=== PATIENT | male | born 1970 | race Hispanic/Latino ===

== ENCOUNTER 2017-07-22 09:57 | Observation (INO) | payer MEDICAID, SELFPAY ==
[2017-07-22 10:30] LABS: #Eosinphils 0.2 thou/uL (0.0-0.7); #Lymphocytes 1.4 thou/uL (1.20-3.40); #Monocytes 0.2 thou/uL (0.11-0.59); #Neutrophils 1.6 thou/uL (1.40-6.50); %Basophils 1.2 % (0.0-1.0); %Lymphocytes 39.9 % (21.0-51.0); %Monocytes 6.3 % (0.0-10.0); Hematocrit 21.9 % (42.0-52.0); Mean Platelet Volume 7.5 fL (7.4-10.4); Red Blood Cell (RBC) Count 2.28 mill/uL (4.70-6.10); White Blood Cell (WBC) Count 3.4 thou/uL (4.8-10.8)
[2017-07-22 10:44] LABS: ALT (SGPT) 19 U/L (8-55); AST (SGOT) 11 U/L (5-34); Alkaline Phosphatase 70 U/L (40-150); Anion Gap 27 mmol/L (10-20); Bilirubin, Total 0.6 mg/dL (0.2-1.2); Calc. Creatinine Clearance 0 mL/min (70-130); Calcium 6.7 mg/dL (7.8-10.44); Carbon Dioxide 15 mmol/L (22-29); Chloride 100 mmol/L (98-107); Estimated GFR-MDRD 2; Globulin 3.2 g/dL (2.4-3.5); Protein, Total 7.5 g/dL (6.0-8.3)
[2017-07-22 10:55] LABS: BUN (Urea Nitrogen) 141 mg/dL (8.9-20.6)
[2017-07-22 11:01] LABS: Oxyhemoglobin 96.4 % (94.0-97.0); Sodium 137 mmol/L (135-148)
[2017-07-22 11:03] LABS: Mode RA; Modified Allen's Test POSITIVE; Vent NO
--- NOTE | 2017-07-22 13:12 | HP ---
PRIMARY CARE PROVIDER: Leatha Denis M.D. PAYMENT PROCESSOR: Jonah Fay M.D. CHIEF COMPLAINT: Referred to the [facility] by [place] emergency doctor. HISTORY OF PRESENT ILLNESS: The patient states he comes to the ED every 15 days to get dialysis. Garrett oneal is not eligible for dialysis as an outpatient. He complains of malaise, fatigue, some pruritus, a nd some anorexia. He has no swelling in his legs. No shortness of breath, no nausea or vomiting, n o chest pain. PAST MEDICAL HISTORY: Pertinent for end-stage renal disease with periodic hospital hemodialysis, hy pertension, and anemia of chronic disease. PAST SURGICAL HISTORY: Fistula in right wrist. CURRENT MEDICATIONS: Tums 1000 mg 3 times a day, amlodipine 5 mg a day, and ferrous sulfate 325 mg a day. ALLERGIES: VANCOMYCIN. SOCIAL HISTORY: , but . Denies alcohol or tobacco. No surrogate decision maker. FAMILY HISTORY: Negative for kidney disorders. REVIEW OF SYSTEMS: GENERAL: No headaches, dizziness, fainting, fever, or chills. EYES: Needs glasses. No blurred vision, otherwise, double vision, flashing lights. EAR, NOSE, AND THROAT: No ear pain or drainage. No nasal bleeding. No trouble swallowing. CARDIAC: No chest pain, orthopnea or paroxysmal nocturnal dyspnea. RESPIRATIONS: No cough, wheezing, or asthma. GASTROINTESTINAL: No nausea, vomiting, diarrhea, constipation or abdominal pain. MUSCULOSKELETAL: No pain or swelling in his muscles or joints. NEUROLOGICAL: No strokes, seizures or focal weakness. PSYCHIATRIC: No anxiety or depression. SKIN: He states he itches, but has no rash and no bruising. HEME/LYMPH: No tender or swollen lymph nodes in axilla, inguinal or cervical area. PHYSICAL EXAMINATION: GENERAL: He is an alert, oriented, and cooperative. VITAL SIGNS: Blood pressure 135/81, pulse 70, respirations 16, and room air sat 99. HEAD, EYES, EARS, NOSE AND THROAT: Reveal pupils equal, round, and reactive to light. Extraocular movements are intact. Sclerae are white. Tympanic membranes clear. Nose is clear. Throat is dutch r. NECK: Supple, without jugular venous distention, adenopathy or thyromegaly. CHEST: Clear to auscultation and percussion. HEART: Regular rate and rhythm. First and second heart sounds are clear. There are no murmurs, ga llops, or rubs. ABDOMEN: Soft, bowel sounds are normal. There is no hepatosplenomegaly, no mass, no rebound, no br uits. EXTREMITIES: Reveal no cyanosis, clubbing or edema. He has a functioning shunt in his right wrist. PULSES: Carotid, radial, femoral, and dorsalis pedis pulses are intact. SKIN: Warm and dry without bruises or rash. HEME/LYMPH: Reveal no tender or swollen lymph nodes in axilla, inguinal or cervical area. NEUROLOGIC: Cranial nerves II-XII are intact. Deep tendon reflexes are symmetric. Moves all extre mities. IMAGING DATA: Chest x-ray shows no cardiomegaly, CHF or infiltrate, on the last chest x-ray which i s within a month reviewed by me. EKG, no peaked T-wave, regular sinus rhythm. LABORATORY DATA: White count 3.4, hemoglobin 7.7, platelet count 129, CO2 15, potassium 5.0, BUN 14 1, creatinine 25. ADMITTING DIAGNOSES: 1. Metabolic acidosis. 2. End-stage renal disease with intermittent hemodialysis. 3. Hypertension. 4. Anemia of chronic kidney disease. PLAN: Emergent hemodialysis. Dr. Jonah Fay has been consulted.
[2017-07-22] MEDS ORDERED: Ondansetron ODT 4 MG TAB PO PRN (14:27)
[2017-07-22] MEDS ORDERED: Zolpidem Tartrate 5 MG TAB PO PRN (14:27)
[2017-07-22] MEDS ORDERED: Acetaminophen 325 MG TAB PO PRN (14:27)
[2017-07-22 14:38] VITALS: BMI 22.1
[2017-07-22] MEDS: Calcium Carbonate 500 MG ChewTAB PO SCH (18:44)
[2017-07-23 06:14] LABS: Anion Gap 21 mmol/L (10-20); BUN (Urea Nitrogen) 55 mg/dL (8.9-20.6); Calc. Creatinine Clearance 6 mL/min (70-130); Calcium 8.2 mg/dL (7.8-10.44); Carbon Dioxide 26 mmol/L (22-29); Chloride 96 mmol/L (98-107); Estimated GFR-MDRD 4
[2017-07-23] MEDS ORDERED: Ferrous Sulfate 325 MG TAB PO SCH (08:00)
[2017-07-23 08:10] VITALS: TEMP 98.3
[2017-07-23] MEDS: Calcium Carbonate 500 MG ChewTAB PO SCH ×3 (08:53→18:27)
[2017-07-23 11:56] VITALS: BP 130/79
--- NOTE | 2017-07-23 20:17 | DIS ---
DATE OF ADMISSION: 07/22/2017 DATE OF DISCHARGE: 07/23/2017 PRIMARY CARE PROVIDER: Slab Installer, Dr. Jonah Fay. Dr. Leatha Denis is listed as PCP. FINAL DIAGNOSES: End-stage renal failure, metabolic acidosis, hypertension, anemia of chronic kidne y disease. DISCHARGE MEDICATIONS: Same as home medications. Ferrous sulfate 325 a day, calcium carbonate 1000 mg 3 times a day, amlodipine 5 mg a day. ALLERGIES: VANCOMYCIN. PENDING AT THE TIME OF DISCHARGE: Nothing. CODE STATUS: FULL. HOSPITAL COURSE: The patient presented to the ER stating he came to the ER every 15 days for dialys is. He apparently is not eligible for outpatient dialysis. In evaluation of him, he was anemic at 7.7 consistent with chronic kidney disease. His arterial blood gas pH was 7.27. His CO2 on comp me tabolic profile was 15, his BUN was 141, creatinine 25. After one episode of hemodialysis, creatini ne is down to 13.52. BUN 55 and CO2 was up to 26. He is having second episode of hemodialysis toda y and will be discharged when it is over. He has been told to follow up with PCP or senior brand manager in 7 days. CONSULTATIONS: Dr. Fay for hemodialysis. PROCEDURES: Hemodialysis x2 in the past 24 hours.
== END 2017-07-23 18:52 | disposition home or self-care (01) ==
LOC: ERS 09:57 → 2SW 13:13
PROVIDERS: ADMIT Internal Medicine; ATTEND Internal Medicine
DX: I12.0 Hypertensive chronic kidney disease with stage 5 chronic kidney disease or end stage renal disease (principal); N18.6 End stage renal disease; D63.1 Anemia in chronic kidney disease; E87.2 Acidosis; Z79.899 Other long term (current) drug therapy; Z88.1 Allergy status to other antibiotic agents; Z99.2 Dependence on renal dialysis
CPT/HCPCS: 36415; 80048; 80053; 82805; 83880; 85025; 87340; 90935; 93005; G0257; G0378; Q0162

== ENCOUNTER 2017-08-13 10:19 | Observation (INO) | payer MEDICAID, SELFPAY ==
[2017-08-13 10:51] LABS: #Eosinphils 0.3 thou/uL (0.0-0.7); #Lymphocytes 1.2 thou/uL (1.20-3.40); #Monocytes 0.2 thou/uL (0.11-0.59); #Neutrophils 2.1 thou/uL (1.40-6.50); %Basophils 0.8 % (0.0-1.0); %Eosinophils 7.1 % (0.0-10.0); %Monocytes 6.5 % (0.0-10.0); Hematocrit 23.3 % (42.0-52.0); Mean Platelet Volume 7.5 fL (7.4-10.4); Red Blood Cell (RBC) Count 2.41 mill/uL (4.70-6.10); White Blood Cell (WBC) Count 3.8 thou/uL (4.8-10.8)
[2017-08-13 11:16] LABS: ALT (SGPT) 52 U/L (8-55); AST (SGOT) 24 U/L (5-34); Alkaline Phosphatase 92 U/L (40-150); Anion Gap 28 mmol/L (10-20); Bilirubin, Total 0.7 mg/dL (0.2-1.2); Calc. Creatinine Clearance 0 mL/min (70-130); Calcium 7.6 mg/dL (7.8-10.44); Carbon Dioxide 16 mmol/L (22-29); Chloride 97 mmol/L (98-107); Estimated GFR-MDRD 2; Globulin 2.7 g/dL (2.4-3.5); Protein, Total 6.9 g/dL (6.0-8.3)
[2017-08-13 11:28] LABS: BUN (Urea Nitrogen) 156 mg/dL (8.9-20.6)
--- NOTE | 2017-08-13 13:22 | HP ---
PRIMARY CARE PHYSICIAN: [facility]. The patient is following Dr. Denis as needed basis. PRIMARY PREMIUM AUDITOR: Dr. Sumeet Mckenzie. REASON FOR ADMISSION: Uremia, hyperkalemia. HISTORY OF PRESENT ILLNESS: A 47-year-old male, who has history of end -stage renal disease, on hemodialysis, who comes in the emergency room periodically for dialysis. He is not able to get maintenance dialysis because of his immigrant status. He has history of focal segmental glomerulosclerosis that was diagnosed with kidney biopsy several years ago. He is getting dialysis through his AV fistula his last admission in our hospital was on 2016. Today, he came to the emergency room with increasing weakness, increasing shortness of breath. He feels congestion in his chest in the morning time. He smells urine from his body. He does have poor appetite and uremic smell and uremic taste. He also has poor appetite. He denies any edema. He denies any chest pain. He denies any fever or chills. He denies any urinary tract infection symptoms. He denies any melena or hematochezia. Today, this patient had a routine workup which showed leukopenia, anemia, and hyperkalemia. He has significantly elevated BUN and creatinine. At this point , the patient is being admitted to observation floor for dialysis. PAST MEDICAL HISTORY: End-stage renal disease on hemodialysis, focal segmental glomerulosclerosis, hypertension, and anemia of renal disease, secondary hyperparathyroidism of renal origin, history of enterococcal bacteremia secondary to infected dialysis catheter subsequently catheter was removed, history of pancytopenia. PAST SURGICAL HISTORY: Hemodialysis catheter placement; subsequently, it was infected and subsequently hemodialysis catheter was removed, AV fistula, kidney biopsy. PAST PSYCHIATRIC HISTORY: Reviewed and negative. ALLERGIES: VANCOMYCIN. FAMILY HISTORY: No strong family history of premature coronary artery disease, stroke or cancer. No family history of ESRD. SOCIAL HISTORY: Patient denies any tobacco, alcohol or illicit drug abuse. He lives by himself at home. CURRENT HOME MEDICATIONS: Nephro-Judy one tablet p.o. daily, ferrous sulfate 325 mg p.o. daily, Tums 1 gram q.i.d., amlodipine 5 mg p.o. daily. EMERGENCY ROOM COURSE: Reviewed. REVIEW OF SYSTEMS: Please see my HPI for pertinent positives and negatives. All other review of systems reviewed and negative except as mentioned in the HPI. Constitutional: Weight loss or gain, ability to conduct usual activities. Skin: Rash, itching. Eyes: Double vision, pain. ENT/Mouth: Nose bleeding, neck stiffness, pain, tenderness. Cardiovascular: Palpitations, dyspnea on exertion, orthopnea. Respiratory: Shortness of breath, wheezing, cough, hemoptysis, fever or night sweats. Gastrointestinal: Poor appetite, abdominal pain, heartburn, nausea, vomiting, constipation, or diarrhea. Genitourinary: Urgency, frequency, dysuria, nocturia. Musculoskeletal: Pain, swelling. Neurologic/Psychiatric: Anxiety, depression. Allergy/Immunologic: Skin rash, bleeding tendency. PHYSICAL EXAMINATION: VITAL SIGNS: Today blood pressure 154/85, pulse 74, respiratory rate 18, temperature 97.6, saturation 100% on room air, weight 66.2 kilograms. GENERAL: Patient is currently alert and awake, on room air, in no obvious acute distress. HEAD: Normocephalic, atraumatic. EYES: Pupils round, reactive to light. Extraocular muscles intact. ENT: Oropharynx within normal limits. Moist mucous membranes. No oral lesions. No pharyngeal erythema, no exudate. NECK: Supple. Range of motion is normal. No meningeal signs of irritation. LUNGS: Clear to auscultation without any rhonchi or rales. CARDIAC: S1, S2 regular. No murmur. No gallop. No rub. ABDOMEN: Soft, bowel sounds present, nontender, nondistended. No organomegaly , no mass, no suprapubic tenderness. BACK EXAMINATION: Unremarkable, no CVA tenderness. EXTREMITIES: Upper extremity AV fistula in place with palpable thrill. Lower extremities: No edema. Good peripheral pulsation. SKIN: No skin rash. HEMATOLOGICAL SYSTEM: No lymphadenopathy. NEUROLOGIC: Patient is alert and oriented x3. Cranial nerves II-XII intact. Motor and sensation within normal limits. SIGNIFICANT LABS: 1. CBC: WBC 3.8, hemoglobin 8.2, platelets 141,000. BMP: Sodium 135, potassium 5.9, chloride 97, carbon dioxide 16, anion gap 28, BUN 156, creatinine 24.9, glucose 101, calcium 7.6. 2. LFT: AST 24, ALT 52, alkaline phosphatase 92, albumin 4.2. ASSESSMENT AND PLAN: 1. Uremia. This patient has uremia smell from his skin, uremia smell from his breath and he has significantly elevated BUN and creatinine ratio. He has ESRD and he is not able to get maintenance hemodialysis that contributed to his uremia and patient also had some uremia symptoms as well. At this point, this patient will need dialysis today and tomorrow to improve his uremia symptoms. 2. Hyperkalemia likely due to end-stage renal disease. At this point, Dr. Jonah Fay was consulted and patient will get dialysis today and will repeat BMP tomorrow. 3. Anion gap metabolic acidosis due to renal failure. The patient was advised to take sodium bicarbonate, but the patient is not able to get the medication, will require hemodialysis today. 4. Anemia of renal disease. We will continue ferrous sulfate 325 mg p.o. daily along with Nephro-Judy one tablet p.o. daily. 5. End-stage renal disease on hemodialysis. Dr. Jonah Fay is his sounding device operator. While in hospital, patient will held dialysis. 6. Deep venous thrombosis prophylaxis not needed because we are expecting discharge in 24 hours. 7. Gastrointestinal prophylaxis, Protonix 40 mg p.o. daily. 8. History of pancytopenia at this time. He has leukopenia and anemia, but his platelet count was normal. 9. History of secondary hyperparathyroidism of renal origin. We will continue PhosLo while in hospital. 10. Hypertension: We will continue with amlodipine 5 mg p.o. daily and based on his vital signs, we will decide to increase to 10 mg p.o. daily. This patient cannot have UNIQUE inhibitor, because of renal failure and hyperkalemia. 11. Code status: The patient is FULL CODE. He does not have any surrogate decision maker. Disposition plan based on clinical course, likely within 24-48 hours. MTDD
[2017-08-13] MEDS ORDERED: Ondansetron HCl/PF 4 MG/2 ML Vial IVP PRN (16:00)
[2017-08-13] MEDS ORDERED: Milk Of Magnesia 30 ML UDCUP PO PRN (16:00)
[2017-08-13] MEDS ORDERED: Diabetic Tussin 200 MG/10 ML UDCUP PO PRN (16:00)
[2017-08-13] MEDS ORDERED: Sodium Chloride 0.65% Nasal 44 ML BOT EA NARE PRN (16:00)
[2017-08-13] MEDS ORDERED: Zolpidem Tartrate 5 MG TAB PO PRN (16:00)
[2017-08-13] MEDS ORDERED: Loperamide HCl 2 MG CAP PO PRN (16:00)
[2017-08-13] MEDS ORDERED: Chloraseptic Spray 180 ml Bottle PO PRN (16:00)
[2017-08-13] MEDS ORDERED: hydrOXYzine Pamoate 25 mg Capsule PO PRN (16:00)
[2017-08-13] MEDS ORDERED: Eucerin (Mineral Oil/Petrolatum,White) 30 gm Jar TOP PRN (16:00)
[2017-08-13] MEDS ORDERED: Senokot 8.6 MG TAB PO PRN (16:00)
[2017-08-13] MEDS ORDERED: Artificial Tears 18 DROP/0.9 ML EA EYE PRN (16:00)
[2017-08-13] MEDS ORDERED: Mag-Al 1200 mg/1200 mg/30 ML UDCUP PO PRN (16:00)
[2017-08-13] MEDS ORDERED: Acetaminophen 325 MG TAB PO PRN (16:00)
[2017-08-13] MEDS: Calcium Acetate 667 MG CAP PO SCH (18:22)
[2017-08-13] MEDS ORDERED: FLU VACC QS2017-18 36 mo. & older 0.5 ML SYRINGE IM ONE (21:00)
[2017-08-13] MEDS: Calcium Carbonate 500 MG ChewTAB PO SCH (21:09)
[2017-08-13] MEDS: Sodium Bicarbonate Tab 325 MG TAB PO SCH (21:09)
[2017-08-13] MEDS: Ondansetron ODT 4 MG TAB PO PRN (21:09)
[2017-08-14] MEDS: HYDROcodone/Acetaminophen 5/325 mg Tablet PO PRN ×2 (00:39→07:38)
[2017-08-14 05:54] LABS: Anion Gap 19 mmol/L (10-20); BUN (Urea Nitrogen) 60 mg/dL (8.9-20.6); Calc. Creatinine Clearance 6 mL/min (70-130); Calcium 8.7 mg/dL (7.8-10.44); Carbon Dioxide 26 mmol/L (22-29); Chloride 98 mmol/L (98-107); Estimated GFR-MDRD 4; Phosphorus 4.9 mg/dL (2.3-4.7)
[2017-08-14] MEDS ORDERED: Ferrous Sulfate 325 MG TAB PO SCH (08:00)
[2017-08-14] MEDS ORDERED: Folic Acid/Vit B Comp W-C PO SCH (09:00)
[2017-08-14] MEDS: Calcium Carbonate 500 MG ChewTAB PO SCH (09:09)
[2017-08-14] MEDS: Sodium Bicarbonate Tab 325 MG TAB PO SCH (09:09)
[2017-08-14] MEDS: Calcium Acetate 667 MG CAP PO SCH ×3 (09:09→17:07)
--- NOTE | 2017-08-14 10:30 | DIS ---
DATE OF ADMISSION: 08/13/2017 DATE OF DISCHARGE: 08/14/2017 PRIMARY CARE PHYSICIAN: Leatha Denis M.D. DISCHARGE DISPOSITION: Home. PRIMARY DISCHARGE DIAGNOSES: 1. Uremia. 2. End-stage renal disease on hemodialysis. 3. Hyperkalemia due to decreased excretion from kidney. 4. Metabolic acidosis due to renal failure SECONDARY DISCHARGE DIAGNOSES: Hypertension, history of focal segmental glomerulosclerosis, end-sta ge renal disease on hemodialysis, anemia of renal disease, secondary hyperparathyroidism of renal or igin. PRIMARY PROCEDURE/OPERATION: Hemodialysis x2 while in hospital. RADIOLOGICAL INVESTIGATION: None. SIGNIFICANT LABORATORY DATA: WBC 3.8, hemoglobin 8.2, platelets 141, BUN 60, creatinine 13.03, phos phorus 4.9. LFT normal. Electrolytes normal. DISCHARGE MEDICATIONS: Amlodipine 5 mg p.o. daily, Tums 1000 mg p.o. t.i.d., ferrous sulfate 325 mg p.o. daily, and Nephro-Judy 1 tablet p.o. daily. CONTRAINDICATIONS: None. CODE STATUS: FULL CODE. INPATIENT DATABASE DEVELOPMENT PROJECT MANAGER: Dr. Jonah Fay was consulted while in hospital for dialysis. TEST RESULTS PENDING ON DISCHARGE: None. ALLERGIES: COMYCIN. DISCHARGE PLAN: Post hospital, the patient will follow up with primary care physician. HOSPITAL COURSE: A 47-year-old male, who has ESRD and he is not able to get outpatient hemodialysis on a regular basis and that is why he comes to emergency room periodically for hemodialysis. He wa s having uremia symptoms. He had hyperkalemia and metabolic acidosis. He was admitted to telemetry floor. We did dialysis on the day of admission as well as today. After dialysis, we will discharg e him home today. Patient is feeling much better. His electrolytes have normalized. This patient will come back again after a few days for outpatient dialysis in the emergency room. T he patient is seen and examined at bedside today. PHYSICAL EXAMINATION: VITAL SIGNS: Currently, temperature 98.3, pulse 79, respiratory rate 14, saturation 99%, blood pres sure 130/69, and weight 133 pounds. GENERAL: The patient is alert, oriented, no acute distress. HEAD: Normocephalic, atraumatic. LUNGS: Clear to auscultation without any rhonchi or rales. CARDIAC: S1 and S2 regular, without any murmurs. ABDOMEN: Soft and benign. EXTREMITIES: No edema. NEUROLOGIC: Nonfocal examination. The patient is medically stable for discharge today.
[2017-08-14 11:26] VITALS: TEMP 98.5
[2017-08-14] MEDS: Ondansetron ODT 4 MG TAB PO PRN (17:06)
[2017-08-14 17:09] VITALS: BP 127/85
== END 2017-08-14 17:56 | disposition home or self-care (01) ==
LOC: ERS 10:19 → 2SW 11:57
PROVIDERS: ADMIT Internal Medicine; ATTEND Internal Medicine
DX: I12.0 Hypertensive chronic kidney disease with stage 5 chronic kidney disease or end stage renal disease (principal); N18.6 End stage renal disease; D63.1 Anemia in chronic kidney disease; N25.81 Secondary hyperparathyroidism of renal origin; E87.2 Acidosis; E87.5 Hyperkalemia; Z88.1 Allergy status to other antibiotic agents; Z79.899 Other long term (current) drug therapy; Z99.2 Dependence on renal dialysis
CPT/HCPCS: 36415; 80053; 80069; 85025; 90935; 93005; G0257; G0378; Q0162

== ENCOUNTER 2017-08-23 09:32 | Observation (INO) | payer MEDICAID, SELFPAY ==
--- NOTE | 2017-08-23 10:41 | RAD ---
PORTABLE CHEST ONE VIEW: 08/23/2017 10:37 a.m. HISTORY: Dyspnea. Patient needing dialysis. COMPARISON: 06/14/2017 FINDINGS: The heart size is normal. The lungs are well expanded without focal areas of consolidation, pneumot horax, prema pulmonary edema, or pleural effusion. IMPRESSION: No acute process. POS: JOSE
[2017-08-23 10:44] LABS: #Eosinphils 0.3 thou/uL (0.0-0.7); #Lymphocytes 1.2 thou/uL (1.20-3.40); #Monocytes 0.2 thou/uL (0.11-0.59); #Neutrophils 1.9 thou/uL (1.40-6.50); %Basophils 0.9 % (0.0-1.0); %Eosinophils 7.1 % (0.0-10.0); %Lymphocytes 33.3 % (21.0-51.0); %Monocytes 5.6 % (0.0-10.0); Hematocrit 24.8 % (42.0-52.0); Mean Platelet Volume 8.1 fL (7.4-10.4); White Blood Cell (WBC) Count 3.6 thou/uL (4.8-10.8)
[2017-08-23 11:02] LABS: ALT (SGPT) 21 U/L (8-55); AST (SGOT) 12 U/L (5-34); Alkaline Phosphatase 78 U/L (40-150); Anion Gap 32 mmol/L (10-20); Bilirubin, Total 0.8 mg/dL (0.2-1.2); CK (CPK) 277 U/L (30-200); Carbon Dioxide 11 mmol/L (22-29); Chloride 96 mmol/L (98-107); Globulin 3.1 g/dL (2.4-3.5); Lipase 78 U/L (8-78); Protein, Total 7.4 g/dL (6.0-8.3)
[2017-08-23 11:06] LABS: Troponin I 0.012 ng/mL (< 0.028)
[2017-08-23 11:14] LABS: BUN (Urea Nitrogen) 161 mg/dL (8.9-20.6)
[2017-08-23 12:32] LABS: Calc. Creatinine Clearance 0 mL/min (70-130); Estimated GFR-MDRD 2
[2017-08-23 13:29] VITALS: BMI 21.8
[2017-08-23] MEDS ORDERED: Acetaminophen 325 MG TAB PO PRN (13:29)
[2017-08-23] MEDS ORDERED: Guaifenesin DM 100-10/5 ML UDCUP PO PRN (13:29)
[2017-08-23] MEDS ORDERED: hydrALAZINE 20 MG/ML VIAL SLOW IVP PRN (13:29)
[2017-08-23] MEDS ORDERED: Loperamide HCl 2 MG CAP PO PRN (13:29)
[2017-08-23] MEDS ORDERED: Ondansetron HCl/PF 4 MG/2 ML Vial IVP PRN (13:29)
[2017-08-23] MEDS ORDERED: HYDROcodone/Acetaminophen 5/325 mg Tablet PO PRN (13:29)
--- NOTE | 2017-08-23 14:06 | HP ---
PRIMARY CARE PHYSICIAN: [facility] Call admission. The patient sees Dr. Denis as needed. PRIMARY BOTTLE INSPECTOR: Dr. Jonah Fay. REASON FOR ADMISSION: Need for dialysis. HISTORY OF PRESENT ILLNESS: This is a 47-year-old male with history of end-stage renal dis ease secondary to FSGS, hypertension, anemia, came to the hospital for needing dialysis. The patien t cannot have outpatient maintenance hemodialysis due to his immigration status and lack of insuranc e and get dialysis at the hospital, last dialysis was from 08/14/2017 during last hospitalization. Patient started having poor appetite and bad taste in the mouth. Denies any chest pain, no shortnes s of breath, no fever or chills. No skin rash. No nausea, vomiting, diarrhea. Patient is here for dialysis. Dr. Fay was notified and the patient will be having dialysis later on today. PAST MEDICAL HISTORY: Positive for end-stage renal disease on hemodialysis, FSGS, hypertension, ane luz, secondary hyperparathyroidism. PAST SURGICAL HISTORY: Hemodialysis catheter placement, AV fistula placement, kidney biopsy. HOME MEDICATIONS: Record says Nephro-Judy, ferrous sulfate, Tums, and amlodipine. ALLERGIES: VANCOMYCIN. SOCIAL HISTORY: No smoking, alcohol or drug abuse. FAMILY HISTORY: No history of any kidney disease. REVIEW OF SYSTEMS: The following complete review of systems was negative, unless otherwise mentione d in the HPI or below: Constitutional: Weight loss or gain, ability to conduct usual activities. Skin: Rash, itching. Eyes: Double vision, pain. ENT/Mouth: Nose bleeding, neck stiffness, pain, tenderness. Cardiovascular: Palpitations, dyspnea on exertion, orthopnea. Respiratory: Shortness of breath, wheezing, cough, hemoptysis, fever or night sweats. Gastrointestinal: Poor appetite, abdominal pain, heartburn, nausea, vomiting, constipation, or diar kenji. Genitourinary: Urgency, frequency, dysuria, nocturia. Musculoskeletal: Pain, swelling. Neurologic/Psychiatric: Anxiety, depression. Allergy/Immunologic: Skin rash, bleeding tendency. PHYSICAL EXAMINATION: GENERAL: This is a well-built male in no apparent distress. VITAL SIGNS: Temperature 97.5, pulse 69, blood pressure 149/91. HEENT: Atraumatic, normocephalic. Oral mucosa is moist. NECK: Supple, no masses. CARDIOVASCULAR: S1, S2 heard. Rate and rhythm regular. RESPIRATORY: Clear to auscultation. No crackles or wheezes. GASTROINTESTINAL: Soft, nontender. MUSCULOSKELETAL: No tenderness. No edema. DERMATOLOGIC: No skin rash. NEUROLOGIC: Alert, awake, moving all the extremities. PSYCHIATRIC: Mood and affect normal. LABORATORY DATA: Hemoglobin is 8.6, sodium 135, potassium 5.4, BUN 161, creatinine is more than 25, glucose 95, and albumin is 4.3. EKG reviewed by me with no acute changes. Chest x-ray, no acute process. ASSESSMENT AND PLAN: 1. End-stage renal disease needing immediate dialysis. Dr. Fay is notified and will arrange elio lysis. The patient will be monitored closely. The patient will be kept in observation. The patien t might need another session of dialysis and probably send home in 1-2 days. 2. Hyperkalemia. Limit potassium and will have renal diet. 3. Hyponatremia, limit fluid intake. 4. Acidosis. We will have dialysis. 5. Azotemia. 6. Elevated BNP, we will remove fluid as per Dr. Fay's recommendations. 7. Anemia. Current medications per Dr. Fay. 8. P.r.n. order set was placed. 9. Selected home medications. PLAN 1. To admit him, have dialysis today and follow up with Dr. Fay's recommendations. 2. DVT/GI prophylaxis. 3. CODE STATUS IS FULL. 4. Further decision based on clinical course.
[2017-08-24 05:23] LABS: Anion Gap 18 mmol/L (10-20); BUN (Urea Nitrogen) 60 mg/dL (8.9-20.6); Calc. Creatinine Clearance 6 mL/min (70-130); Calcium 8.2 mg/dL (7.8-10.44); Carbon Dioxide 26 mmol/L (22-29); Chloride 97 mmol/L (98-107); Estimated GFR-MDRD 4
--- NOTE | 2017-08-24 08:56 | PDOC.PN ---
- Subjective Encounter Start Date: 08/24/17 Encounter Start Time: 08:54 Patient seen and examined. No new complaints. No overnight events. Pt seen at dialysis. No complaints. - Objective Resuscitation Status: Resuscitation Status FULL:Full Resuscitation MAR Reviewed: Yes Vital Signs & Weight: Vital Signs (12 hours) Temp Pulse Resp BP BP Pulse Ox 08/24/17 07:37 99.1 F 78 16 08/24/17 07:07 99.0 F 95 16 110/73 98 08/24/17 04:50 99.1 F 78 16 126/79 98 08/24/17 00:06 98.8 F 91 14 137/79 98 Weight Weight 135 lb 11.2 oz I&O: 08/23/17 08/24/17 08/25/17 06:59 06:59 06:59 Intake Total 602 Output Total 0 Balance 602 Result Diagrams: 08/23/17 10:29 08/24/17 04:51 Phys Exam - Physical Examination Constitutional: NAD HEENT: moist MMs, sclera anicteric Neck: supple Respiratory: no wheezing, no rales Cardiovascular: RRR Gastrointestinal: soft Musculoskeletal: no edema Neurological: non-focal, moves all 4 limbs Psychiatric: normal affect, A&O x 3 Skin: no rash, normal turgor Dx/Plan (1) Anemia in ESRD (end-stage renal disease) Code(s): N18.6 - END STAGE RENAL DISEASE; D63.1 - ANEMIA IN CHRONIC KIDNEY DISEASE Status: Acute (2) Acidosis, metabolic Code(s): E87.2 - ACIDOSIS Status: Acute (3) ESRD (end stage renal disease) on dialysis Code(s): N18.6 - END STAGE RENAL DISEASE; Z99.2 - DEPENDENCE ON RENAL DIALYSIS Status: Chronic (4) HTN (hypertension) Code(s): I10 - ESSENTIAL (PRIMARY) HYPERTENSION Status: Chronic - Plan cont current plan of care * . seen during dialysis. second session today. Epo SC ordered per nephro HD per Dr Fay. will DC home today if OK with nephro.
[2017-08-24] MEDS ORDERED: Epoetin (ESRD) 20,000 UNITS/ML SC SCH (09:00)
[2017-08-24] MEDS ORDERED: Amlodipine 5 MG TAB PO SCH (09:00)
[2017-08-24 12:04] VITALS: BP 130/84; TEMP 98.8
--- NOTE | 2017-08-25 06:18 | DIS ---
DATE OF ADMISSION: 08/23/2017 DATE OF DISCHARGE: 08/24/2017 DISCHARGE DIAGNOSES: End-stage renal disease, hyperkalemia, acidosis, anemia of end-stage renal dis ease. CONSULTATIONS: Dr. Fay for Nephrology. PROCEDURES: Hemodialysis. HOSPITAL COURSE: This is a 47-year-old male with no documents, no insurance, on outpatient dialysis, came to the hospital for maintenance hemodialysis. The patient does have frequent visits to the hospital. The patient was dialyzed due to his uremic symptoms. Dr. Fay's assistance is highly appreciated. The patient had 2 sessions of dialysis and was feeling better on the day of dis charge. Though he was also given Epogen and other medications with dialysis, his potassium was elev ated initially and got better. The patient left the hospital in stable condition. The patient was advised to follow up with Dr. Fay or come back to the ER if symptoms worsen. The patient does no t have funding to arrange for outpatient regular hemodialysis. Long-term prognosis is poor and the patient is aware. CONDITION ON DISCHARGE: Stable. DISPOSITION: To home. DISCHARGE MEDICATIONS: Amlodipine 5 mg p.o. daily. DISCHARGE FOLLOWUP: 1. Follow up with current dialysis. 2. Follow up with Dr. Fay for other medications as needed, advised to monitor blood pressure yasmeen sely at home. Blood pressure was stable on discharge. 3. Follow up with Dr. Fay in 1-2 weeks. 4. Follow up with primary care in 1-2 weeks.
== END 2017-08-24 13:39 | disposition home or self-care (01) ==
LOC: ERS 09:32 → 2SW 11:23
PROVIDERS: ADMIT Internal Medicine Addiction Medicine; ATTEND Internal Medicine Addiction Medicine
DX: I12.0 Hypertensive chronic kidney disease with stage 5 chronic kidney disease or end stage renal disease (principal); N18.6 End stage renal disease; D64.9 Anemia, unspecified; N25.81 Secondary hyperparathyroidism of renal origin; E87.5 Hyperkalemia; E87.2 Acidosis; Z88.1 Allergy status to other antibiotic agents; Z79.899 Other long term (current) drug therapy; Z98.890 Other specified postprocedural states; Z99.2 Dependence on renal dialysis
CPT/HCPCS: 36415; 71010; 80048; 80053; 82550; 82553; 83690; 83880; 84484; 85025; 87340; 90935; 93005; 96374; A4216; G0257; G0378; J2405; Q4081

== ENCOUNTER 2017-08-30 10:13 | Observation (INO) | payer MEDICAID, SELFPAY ==
[2017-08-30 11:16] LABS: #Basophils 0.1 thou/uL (0.0-0.2); #Eosinphils 0.4 thou/uL (0.0-0.7); #Lymphocytes 1.5 thou/uL (1.20-3.40); #Monocytes 0.2 thou/uL (0.11-0.59); #Neutrophils 2.1 thou/uL (1.40-6.50); %Basophils 1.9 % (0.0-1.0); %Eosinophils 10.1 % (0.0-10.0); %Lymphocytes 33.6 % (21.0-51.0); %Monocytes 4.8 % (0.0-10.0); Hematocrit 23.9 % (42.0-52.0); Mean Platelet Volume 7.3 fL (7.4-10.4); Red Blood Cell (RBC) Count 2.54 mill/uL (4.70-6.10); White Blood Cell (WBC) Count 4.3 thou/uL (4.8-10.8)
[2017-08-30 11:31] LABS: ALT (SGPT) 16 U/L (8-55); AST (SGOT) 10 U/L (5-34); Alkaline Phosphatase 71 U/L (40-150); Anion Gap 29 mmol/L (10-20); Bilirubin, Total 0.6 mg/dL (0.2-1.2); Calc. Creatinine Clearance 0 mL/min (70-130); Calcium 7.5 mg/dL (7.8-10.44); Carbon Dioxide 18 mmol/L (22-29); Chloride 95 mmol/L (98-107); Estimated GFR-MDRD 2; Globulin 3.2 g/dL (2.4-3.5); Protein, Total 7.5 g/dL (6.0-8.3)
[2017-08-30 11:48] LABS: BUN (Urea Nitrogen) 123 mg/dL (8.9-20.6)
[2017-08-30 14:57] VITALS: BMI 22.5
[2017-08-30] MEDS ORDERED: Ondansetron HCl/PF 4 MG/2 ML Vial IVP PRN (15:18)
[2017-08-30] MEDS ORDERED: Ondansetron ODT 4 MG TAB SL PRN (15:18)
[2017-08-30] MEDS ORDERED: Acetaminophen 325 MG TAB PO PRN (15:18)
--- NOTE | 2017-08-30 16:04 | HP ---
PRIMARY CARE PHYSICIAN: Jonah Fay M.D. CHIEF COMPLAINT: Need for dialysis. HISTORY OF PRESENT ILLNESS: The patient is a 47-year-old patient with history of end-stage renal di sease secondary to FSGS, hypertension, anemia, and he presented to the hospital in need of dialysis. His last dialysis was actually here approximately 1 week ago, 08/24/2017. The patient reports hav ing a headache and feeling nauseous yesterday and he presented to the ER for dialysis. REVIEW OF SYSTEMS The following complete review of systems was negative, unless otherwise mentioned in the HPI or belo w: Constitutional: Weight loss or gain, sense of well-being, ability to conduct usual activities, exerc ise tolerance. Skin/Breast: Rash, itching, changes in hair growth or loss, nail changes, breast lumps, tenderness, swelling, nipple discharge. Eyes: Vision, double vision, tearing, blind spots, pain. ENT/Mouth: Headaches (location, time of onset, duration, precipitating factors), vertigo, lighthead edness, injury. Vision, double vision, tearing, blind spots, pain, nose bleeding, colds, obstruction , discharge, dental difficulties, gingival bleeding, dentures, neck stiffness, pain, tenderness, mas ses in thyroid or other areas. Cardiovascular: Precordial pain, substernal distress, palpitations, syncope, dyspnea on exertion, o rthopnea, nocturnal paroxysmal dyspnea, edema, cyanosis, hypertension, heart murmurs, varicosities, phlebitis, claudication. Respiratory: Pain, shortness of breath, wheezing, stridor, cough, hemoptysis, fever or night sweats . Gastrointestinal: Poor appetite, dysphagia, indigestion, abdominal pain, heartburn, eructation, suzanne sea, vomiting, hematemesis, jaundice, constipation, or diarrhea, abnormal stools (carlos-colored, clifton y, bloody, greasy, foul smelling), flatulence, hemorrhoids, recent changes in bowel habits. Genitourinary: Urgency, frequency, dysuria, nocturia, hematuria, polyuria, oliguria, unusual (or ch nany in) color of urine, stones, hesitancy, change in size of stream, dribbling, acute retention or incontinence, libido, potency. Musculoskeletal: Pain, swelling, redness or heat of muscles or joints, limitation, of motion, muscu lar weakness, atrophy, cramps. Neurologic/Psychiatric: Convulsions, paralyses, tremor, incoordination, paresthesias, difficulties with memory of speech, sensory or motor disturbances, or muscular coordination (ataxia, tremor), emo tional problems, anxiety, depression, previous psychiatric care, unusual perceptions, hallucinations . Allergy/Immunologic: Skin rash, anemia, bleeding tendency, polydipsia, polyuria, intolerance to hea t or cold. PAST MEDICAL HISTORY: Significant for end-stage renal disease on hemodialysis. FSGS, hypertension, anemia secondary to end-stage renal disease and secondary hyperparathyroidism. PAST SURGICAL HISTORY: Positive for a hemodialysis, catheter placement, AV fistula placement and ki dney biopsy. FAMILY HISTORY: No history of any kidney disease in any of his family members. HOME MEDICATIONS: According to records include ferrous sulfate, Tums, amlodipine, and Nephro-Judy. ALLERGIES: VANCOMYCIN. PHYSICAL EXAMINATION: VITAL SIGNS: Temperature of 97.4, pulse 70, respirations 16, O2 sats 100% on room air, blood pressu re 140/77. GENERAL: He is in no acute distress, pleasant, cooperative. HEAD: Normocephalic, atraumatic. EYES: PERRL. Extraocular muscles intact. ENT: External ear exam normal. Throat clear. NECK: Supple, full range of motion. CARDIAC: Regular rate and rhythm. No murmurs, regurgitations or gallops. LUNGS: Clear to auscultation. ABDOMEN: Nontender, nondistended. EXTREMITIES: No clubbing, cyanosis or edema. LABORATORY DATA AND IMAGES: Chemistry shows sodium of 137, potassium 5.3, chloride 95, CO2 of 18, B UN 123, creatinine 22.78, glucose 92, calcium 7.5, AST 10, ALT 16, alkaline phosphatase 71, albumin 4.3. CBC shows a white count of 4.3, hemoglobin 8.2, hematocrit 23.9, platelets 155 and 10.1% eosin ophils and 1.9% basophils. ASSESSMENT AND PLAN: 1. End-stage renal disease. 2. Hypertension. PLAN: The patient will be admitted for observation and will receive hemodialysis per the orders of Dr. Fay.
[2017-08-31 04:28] LABS: #Eosinphils 0.2 thou/uL (0.0-0.7); #Lymphocytes 1.3 thou/uL (1.20-3.40); #Monocytes 0.3 thou/uL (0.11-0.59); #Neutrophils 1.7 thou/uL (1.40-6.50); %Basophils 1.3 % (0.0-1.0); %Lymphocytes 37.5 % (21.0-51.0); %Monocytes 9.1 % (0.0-10.0); Hematocrit 22.8 % (42.0-52.0); Mean Platelet Volume 7.7 fL (7.4-10.4); Red Blood Cell (RBC) Count 2.41 mill/uL (4.70-6.10); White Blood Cell (WBC) Count 3.5 thou/uL (4.8-10.8)
[2017-08-31 04:47] LABS: Anion Gap 15 mmol/L (10-20); BUN (Urea Nitrogen) 41 mg/dL (8.9-20.6); Calc. Creatinine Clearance 8 mL/min (70-130); Calcium 8.3 mg/dL (7.8-10.44); Carbon Dioxide 26 mmol/L (22-29); Chloride 98 mmol/L (98-107); Estimated GFR-MDRD 5
[2017-08-31] MEDS ORDERED: Amlodipine 5 MG TAB PO SCH (09:00)
--- NOTE | 2017-08-31 10:28 | PDOC.EVN ---
Event Note - Event Note Event Note: [id number] dc summary dictated 1. ESRD 2. HTN 3. Metabolic acidosis 4. hyperkalemia plan see orders
[2017-08-31 11:08] VITALS: BP 145/82
[2017-08-31 11:19] VITALS: TEMP 99
--- NOTE | 2017-08-31 12:50 | DIS ---
DATE OF ADMISSION: 08/30/2017 DATE OF DISCHARGE: 08/31/2017 DISCHARGE DIAGNOSES: 1. Hypertension, uncontrolled. 2. End-stage renal disease. 3. Hyperkalemia. 4. Metabolic acidosis. DISCHARGE CONDITION: Stable. DISPOSITION: Home. DISCHARGE MEDICATIONS: See med rec form. CONSULTANTS: ID and Nephrology. HOSPITAL COURSE: The patient is a 47-year-old male admitted for dialysis. 1. The patient has end-stage renal disease. The patient was seen by fish bin tender. The patient mohr d dialysis done. Patient was at the time of discharge. 2. Hypertension. Blood pressure monitored today, patient was discharged on Norvasc and hydralazine at the time of discharge. 3. Metabolic acidosis plus hypocalcemia. The patient's bicarbonate level improved at the time of d ischarge. The patient was started on Tums at the time of discharge, advised to continue with renal diet. PHYSICAL EXAMINATION: VITAL SIGNS: On the day of discharge, blood pressure is 159/92, respiratory rate 18, pulse ox 97%, temperature 98.8. GENERAL: This patient appears comfortable. EYES: Pupils equal, round, and reactive. ENT: Patent. Nose normal. Ears normal. Teeth intact. Tongue is moist. NECK: Supple. No JVD. CARDIOVASCULAR: S1, S2 present. No murmurs, no rubs, no gallops. RESPIRATORY: No wheezing, no rhonchi. ABDOMEN: Soft, nontender, no guarding, no organomegaly, no masses felt. MUSCULOSKELETAL: No edema. The patient is stable at the time of discharge. Discharge time 40 minutes.
== END 2017-08-31 12:11 | disposition home or self-care (01) ==
LOC: ERS 10:13 → 2SW 14:56
PROVIDERS: ADMIT Internal Medicine Addiction Medicine; ATTEND Internal Medicine Addiction Medicine
DX: I12.0 Hypertensive chronic kidney disease with stage 5 chronic kidney disease or end stage renal disease (principal); N18.6 End stage renal disease; D63.1 Anemia in chronic kidney disease; N25.81 Secondary hyperparathyroidism of renal origin; E87.2 Acidosis; E87.5 Hyperkalemia; Z88.1 Allergy status to other antibiotic agents; Z98.890 Other specified postprocedural states; Z99.2 Dependence on renal dialysis
CPT/HCPCS: 36415; 80048; 80053; 85025; 90935; 93005; G0257; G0378

== ENCOUNTER 2017-09-21 09:13 | Observation (INO) | payer MEDICAID, SELFPAY ==
[2017-09-21 09:46] LABS: #Eosinphils 0.4 thou/uL (0.0-0.7); #Lymphocytes 1.2 thou/uL (1.20-3.40); #Monocytes 0.2 thou/uL (0.11-0.59); %Basophils 0.5 % (0.0-1.0); %Eosinophils 9.4 % (0.0-10.0); %Lymphocytes 31.7 % (21.0-51.0); %Monocytes 4.8 % (0.0-10.0); Hematocrit 21.4 % (42.0-52.0); Mean Platelet Volume 8.1 fL (7.4-10.4); Red Blood Cell (RBC) Count 2.18 mill/uL (4.70-6.10); White Blood Cell (WBC) Count 3.7 thou/uL (4.8-10.8)
[2017-09-21 10:11] LABS: ALT (SGPT) 84 U/L (8-55); AST (SGOT) 47 U/L (5-34); Alkaline Phosphatase 76 U/L (40-150); Anion Gap 23 mmol/L (10-20); BUN (Urea Nitrogen) 99 mg/dL (8.9-20.6); Bilirubin, Total 0.6 mg/dL (0.2-1.2); Calc. Creatinine Clearance 0 mL/min (70-130); Calcium 7.7 mg/dL (7.8-10.44); Carbon Dioxide 18 mmol/L (22-29); Chloride 102 mmol/L (98-107); Estimated GFR-MDRD 2; Globulin 2.8 g/dL (2.4-3.5); Protein, Total 7.2 g/dL (6.0-8.3)
[2017-09-21] MEDS ORDERED: Senokot 8.6 MG TAB PO PRN (11:33)
[2017-09-21] MEDS ORDERED: Ondansetron ODT 4 MG TAB PO PRN (11:33)
[2017-09-21] MEDS ORDERED: HYDROcodone/Acetaminophen 5/325 mg Tablet PO PRN (11:33)
[2017-09-21] MEDS ORDERED: Calcium Carbonate 500 MG ChewTAB PO PRN (11:33)
[2017-09-21] MEDS ORDERED: Acetaminophen 325 MG TAB PO PRN ×2 (11:33→20:23)
[2017-09-21] MEDS ORDERED: Ondansetron HCl/PF 4 MG/2 ML Vial IVP PRN (11:33)
[2017-09-21 13:29] VITALS: BMI 19.8
[2017-09-21] MEDS: hydrALAZINE 25 MG TAB PO SCH ×3 (13:43→23:34)
--- NOTE | 2017-09-21 17:54 | HP ---
PRIMARY CARE PHYSICIAN: Leatha Denis M.D. PRIMARY REUSE TECHNICIAN: Jonah Fay M.D. CHIEF COMPLAINT: Needing hemodialysis. HISTORY OF PRESENT ILLNESS: Patient is a 47-year-old male with end-stage renal disease on intermitte nt hemodialysis due to financial reasons, who presented to the hospital with above complaints. The p julio had last hemodialysis session approximately a week ago. Over the last 3-4 days, the patient d eveloped increased puffiness, especially on his face along with swelling in bilateral lower extremiti es. The shortness of breath was worse on mild to moderate exertion. He also had some generalized we akness and excessive fatigue. No chest pain, palpitations, lightheadedness, dizziness, diaphoresis r eported. In the emergency room, his initial vital signs showed temperature 98, respirations 18, pulse 85, bloo d pressure 142/82 with O2 saturation 100% on room air. Nephrology has been contacted for emergent he modialysis. PAST MEDICAL HISTORY: 1. End-stage renal disease secondary to focal segmental glomerulosclerosis. 2. Hypertension. 3. Anemia secondary to renal insufficiency. 4. Secondary hyperparathyroidism. PAST SURGICAL HISTORY: 1. Dialysis access. 2. Renal biopsy. ALLERGIES: Patient is allergic to VANCOMYCIN. CURRENT HOME MEDICATIONS: Amlodipine 5 mg daily, hydralazine 25 mg 4 times a day. SOCIAL HISTORY: Patient currently lives at home. No smoking, alcohol or drug use. FAMILY HISTORY: Negative for premature coronary artery disease. REVIEW OF SYSTEMS: The following complete review of systems was negative, unless otherwise mentioned in the HPI or below: CONSTITUTIONAL: Weight loss or gain, ability to conduct usual activities. SKIN: Rash, itching. EYES: Double vision, pain. ENT/MOUTH: Nose bleeding, neck stiffness, pain, tenderness. CARDIOVASCULAR: Palpitations, dyspnea on exertion, orthopnea. RESPIRATORY: Shortness of breath, wheezing, cough, hemoptysis, fever or night sweats. GASTROINTESTINAL: Poor appetite, abdominal pain, heartburn, nausea, vomiting, constipation, or diarr hea. GENITOURINARY: Urgency, frequency, dysuria, nocturia. MUSCULOSKELETAL: Pain, swelling. NEUROLOGIC/PSYCHIATRIC: Anxiety, depression. ALLERGY/IMMUNOLOGIC: Skin rash, bleeding tendency. PHYSICAL EXAMINATION: VITAL SIGNS: As discussed above. GENERAL: A 47-year-old male in no significant distress. HEENT: Atraumatic, normocephalic, sclerae are anicteric. Moist mucous membranes. No oral lesion. NECK: Supple, no JVD, no carotid bruit. LUNGS: Showed scattered bibasilar crackles, no rhonchi or wheezing. HEART: S1, S2 present. Regular rate and rhythm. No rubs or gallops. ABDOMEN: Soft, mild generalized tenderness. Bowel sounds present, no rebound, guarding, no costover tebral angle tenderness. EXTREMITIES: Trace edema in bilateral lower extremities. NEUROLOGIC: Grossly nonfocal, moves all four extremities. PSYCHIATRY: Alert, awake, oriented x3. SKIN: Warm and dry. LYMPH NODES: No palpable lymph nodes in the neck. PERIPHERAL VASCULAR: Radial pulses palpable bilaterally. MUSCULOSKELETAL: No joint swelling or tenderness. LABORATORY AND X-RAY FINDINGS: Potassium 5.3, BUN 99, creatinine 22.6. CBC showed WBC 3.7 with hemo globin 7.3. Telemetry monitoring by my review showed sinus rhythm. IMPRESSION: 1. Volume overload secondary to missed hemodialysis. 2. Hyperkalemia secondary to #1. 3. Metabolic acidosis secondary to uremia. 4. History of focal segmental glomerulosclerosis. 5. Hypertension. 6. Anemia secondary to renal insufficiency. 7. History of pancytopenia. Plan of care was discussed with the patient and he stated understanding. The patient will be monitored on the medical floor as observation. He will undergo hemodialysis per Nephrology. We will repeat labs in a.m. We will initiate renal diet. Resume home medications. DISPOSITION: Probably in a.m. Nephrology has been notified. Plan of care was discussed with the lili de la cruz and he stated understanding.
[2017-09-21] MEDS ORDERED: Epoetin (ESRD) 20,000 UNITS/ML SC SCH (21:00)
[2017-09-22 06:02] LABS: Anion Gap 16 mmol/L (10-20); BUN (Urea Nitrogen) 38 mg/dL (8.9-20.6); Calc. Creatinine Clearance 7 mL/min (70-130); Calcium 8.2 mg/dL (7.8-10.44); Carbon Dioxide 30 mmol/L (22-29); Chloride 100 mmol/L (98-107); Estimated GFR-MDRD 5
[2017-09-22] MEDS ORDERED: Amlodipine 5 MG TAB PO SCH (09:00)
[2017-09-22 11:26] VITALS: BP 141/80; TEMP 98.9
[2017-09-22] MEDS: hydrALAZINE 25 MG TAB PO SCH ×2 (12:00)
--- NOTE | 2017-09-23 08:47 | DIS ---
DATE OF ADMISSION: 09/21/2017 DATE OF DISCHARGE: 09/22/2017 DISCHARGE DISPOSITION: Home. DISCHARGE MEDICATIONS: Same as admission medication that includes amlodipine, hydralazine, and calci um carbonate. The patient was seen and examined on the day of discharge. Denies any new complaints. No chest pain , shortness of breath or palpitations. FOLLOWUP: Follow up with Dr. Denis in one week. BRIEF HOSPITAL COURSE: Patient is a 47-year-old male with end-stage renal disease on interm ittent hemodialysis due to financial reasons, presented to the hospital with symptoms consistent with uremia. He underwent hemodialysis per Nephrology. He will sign up for an outpatient dialysis progr am. He was extensively counseled to be compliant with renal diet. He appears stable for discharge. FINAL DIAGNOSES: 1. Volume overload secondary to missed hemodialysis. The patient received 2 hemodialysis sessions. 2. Hyperkalemia with potassium of 5.3 on admission. Repeat potassium this morning was 4.8. 3. Metabolic acidosis secondary to uremia. 4. History of focal segmental glomerulosclerosis. 5. Hypertension. 6. Anemia secondary to renal insufficiency. 7. History of pancytopenia. Plan of care was discussed with the patient. He stated understanding.
== END 2017-09-22 13:19 | disposition home or self-care (01) ==
LOC: ERS 09:13 → 2SW 11:33
PROVIDERS: ADMIT Internal Medicine; ATTEND Internal Medicine
DX: I12.0 Hypertensive chronic kidney disease with stage 5 chronic kidney disease or end stage renal disease (principal); N18.6 End stage renal disease; D63.1 Anemia in chronic kidney disease; N25.81 Secondary hyperparathyroidism of renal origin; E87.79 Other fluid overload; E87.5 Hyperkalemia; E87.2 Acidosis; D61.818 Other pancytopenia; Z99.2 Dependence on renal dialysis
CPT/HCPCS: 36415; 80048; 80053; 85025; 86704; 86706; 86803; 87340; 90935; 96374; 99284; G0257; G0378; J2405; Q4081

== ENCOUNTER 2019-01-16 16:40 | Observation (INO) | payer BC, OTHER ==
[2019-01-16] MEDS ORDERED: Metoclopramide HCl 10 MG/2 ML VIAL ONE (17:05)
[2019-01-16] MEDS ORDERED: diphenhydrAMINE 50 MG/ML VIAL ONE (17:05)
[2019-01-16] MEDS ORDERED: Acetaminophen 500 MG TAB ONE (17:05)
--- NOTE | 2019-01-16 17:39 | CT ---
CT BRAIN WITHOUT CONTRAST: History: Headache. FINDINGS: No acute hemorrhage or infarct. No midline shift or mass effect. Ventricular size and extraaxial CSF spaces are normal. Calvarium is intact. IMPRESSION: Hypodensities densities of the right thalamus and left external capsule likely chronic in nature. If there is clinical concern for infarction, MRI recommended. POS: [facility]
[2019-01-16 17:43] LABS: #Eosinphils 0.2 thou/uL (0.0-0.7); #Lymphocytes 0.9 thou/uL (1.20-3.40); #Monocytes 0.2 thou/uL (0.11-0.59); #Neutrophils 2.6 thou/uL (1.40-6.50); %Basophils 0.5 % (0.0-1.0); %Eosinophils 4.1 % (0.0-10.0); %Lymphocytes 22.2 % (21.0-51.0); %Monocytes 5.3 % (0.0-10.0); %Neutrophils 67.9 % (42.0-75.0); Hemoglobin 11.4 g/dL (14.0-18.0); Mean Corpuscular HGB CONC 34.3 g/dL (32.0-36.0); Mean Corpuscular Hemoglobin 35.3 pg (27.0-31.0); Mean Platelet Volume 9.4 fL (7.4-10.4); Platelet Count 119 thou/uL (130-400); RBC Distribution Width 13.2 % (11.5-14.5); Red Blood Cell (RBC) Count 3.23 mill/uL (4.70-6.10); White Blood Cell (WBC) Count 3.9 thou/uL (4.8-10.8)
--- NOTE | 2019-01-16 18:06 | RAD ---
CHEST ONE VIEW: Indication: History of dialysis with nausea and vomiting. FINDINGS: There is cardiomegaly and mild pulmonary vascular congestion. No definite pleural effusion or pneumot horax is evident. No acute osseous abnormality is evident. IMPRESSION: Cardiomegaly with pulmonary vascular congestion may reflect sequellae of volume overload or CHF. POS: [facility]
[2019-01-16 18:14] LABS: ALT (SGPT) 25 U/L (8-55); AST (SGOT) 17 U/L (5-34); Albumin 4.4 g/dL (3.5-5.0); Alkaline Phosphatase 72 U/L (40-150); Anion Gap 17 mmol/L (10-20); BUN (Urea Nitrogen) 21 mg/dL (8.9-20.6); Bilirubin, Total 0.9 mg/dL (0.2-1.2); Calc. Creatinine Clearance 0 mL/min (70-130); Calcium 9.1 mg/dL (7.8-10.44); Carbon Dioxide 28 mmol/L (22-29); Chloride 97 mmol/L (98-107); Estimated GFR-MDRD 9; Globulin 2.5 g/dL (2.4-3.5); Glucose 114 mg/dL (70-105); Protein, Total 6.9 g/dL (6.0-8.3); Sodium 138 mmol/L (136-145)
[2019-01-16] MEDS ORDERED: cloNIDine 0.1 MG TAB ONE (19:00)
[2019-01-16] MEDS ORDERED: hydrALAZINE 20 MG/ML VIAL ONE (21:01)
[2019-01-16] MEDS ORDERED: methylPREDNISolone Sod Succ/PF 125 MG/2 ML VIAL ONE (22:15)
[2019-01-17 00:04] VITALS: BMI 19.7
[2019-01-17] MEDS ORDERED: cloNIDine 0.2 MG TAB PO PRN (01:07)
[2019-01-17] MEDS ORDERED: hydrALAZINE 20 MG/ML VIAL SLOW IVP PRN (01:07)
[2019-01-17] MEDS ORDERED: Labetalol HCl 100 MG/20 ML VIAL SLOW IVP PRN (01:07)
[2019-01-17] MEDS ORDERED: hydrALAZINE 25 MG TAB PO SCH (09:00)
[2019-01-17] MEDS ORDERED: Losartan 25 MG TAB PO SCH (09:00)
[2019-01-17] MEDS ORDERED: Ondansetron ODT 4 MG TAB PO PRN (12:01)
[2019-01-17 12:08] VITALS: TEMP 98.4
[2019-01-17 12:30] LABS: #Lymphocytes 0.8 thou/uL (1.20-3.40); #Monocytes 0.3 thou/uL (0.11-0.59); #Neutrophils 2.7 thou/uL (1.40-6.50); %Basophils 0.5 % (0.0-1.0); %Eosinophils 0.2 % (0.0-10.0); %Lymphocytes 20.2 % (21.0-51.0); %Monocytes 8.1 % (0.0-10.0); %Neutrophils 71.1 % (42.0-75.0); Hemoglobin 11.2 g/dL (14.0-18.0); Mean Corpuscular HGB CONC 33.6 g/dL (32.0-36.0); Mean Corpuscular Hemoglobin 34.6 pg (27.0-31.0); Mean Platelet Volume 9.4 fL (7.4-10.4); Platelet Count 131 thou/uL (130-400); RBC Distribution Width 13.2 % (11.5-14.5); Red Blood Cell (RBC) Count 3.23 mill/uL (4.70-6.10); White Blood Cell (WBC) Count 3.8 thou/uL (4.8-10.8)
[2019-01-17 12:57] LABS: Anion Gap 14 mmol/L (10-20); BUN (Urea Nitrogen) 40 mg/dL (8.9-20.6); Calc. Creatinine Clearance 8 mL/min (70-130); Calcium 8.9 mg/dL (7.8-10.44); Carbon Dioxide 31 mmol/L (22-29); Chloride 95 mmol/L (98-107); Estimated GFR-MDRD 5; Glucose 160 mg/dL (70-105); Potassium 4.8 mmol/L (3.5-5.1); Sodium 135 mmol/L (136-145)
[2019-01-17 13:08] VITALS: BP 135/74
[2019-01-17] MEDS ORDERED: cloNIDine 0.2 MG TAB PO SCH (21:00)
[2019-01-17] MEDS ORDERED: Famotidine 20 MG TAB PO SCH (21:00)
--- NOTE | 2019-01-19 18:50 | SS ---
DATE OF ADMISSION: 01/16/2019 DATE OF DISCHARGE: 01/17/2019 CHIEF COMPLAINT: Headache with high blood pressure. HOSPITAL COURSE: Mr. Hemanth Verma is a pleasant 48-year-old man, who presented to the ED on 01/16/2019, with complaints of a headache and vomiting x3. He was undergoing dialysis and began to feel unwell towards the end with notably high blood pressure. He states that usually settles once he completes dialysis and starts to mobilize. This time, however, it did not improve, prompting him to come in. On arrival to the ED, he had a blood pressure of 230/140. The patient reported taking hydralazine and clonidine for his blood pressure. Upon further questioning, it was clear he was not taking his home medications on a consistent basis. He is afraid of taking too many medications and affecting his kidneys. He has also not been consistently checking his blood pressures at home. In the ED, he was given hydralazine 10 mg and clonidine 0.2 mg. For nausea or vomiting, he was given metoclopramide 10 mg IV. His blood pressure had transient improvement and his headache also improved. However, his blood pressure bounced back up and his headache returned. He was also given IV Solu-Medrol for his headache. The patient was therefore admitted for hypertensive urgency. He was initially seen the morning of 01/17/2019, and on arrival to the floor, he was given labetalol 10 mg to be continued q.4 hours as needed as well as clonidine 0.2 mg p.o. daily as needed. He was initially seen by me on the morning of 01/17/2019, and as mentioned previously, further questioning resulted in finding out that he was not taking medications as prescribed. The patient confirmed he should be taking hydralazine 100 mg p.o. t.i.d. and also should be taking clonidine 0.2 mg p.o. twice daily in addition to losartan 50 mg p.o. daily. I had an extensive discussion with the patient, advising him on adhering to his medications and taking them as prescribed as well as keeping a diary of when he takes his medications and his blood pressure readings throughout the day. The patient states he has had frequent changes with his medications, but admits that his doctors are not aware of his noncompliance. The patient remained asymptomatic with blood pressure under better control and no further headaches or vomiting. He is tolerating a regular diet and very eager for discharge home. He was therefore medically cleared for discharge home. REVIEW OF SYSTEMS: The patient again denies having any further headaches or nausea/vomiting. Denies having any abdominal pain or cramping. Has been tolerating a regular diet. Denies having any dizziness. No chest pain, palpitations, or shortness of breath. No urinary symptoms. No changes with his bowels. All other review of systems is negative. PHYSICAL EXAMINATION: GENERAL: The patient appears well-developed and in no acute distress. VITAL SIGNS: Temperature 98.4, pulse 73, respirations 16, O2 saturation 96% on room air. Blood pressure 159/86. HEENT: Normocephalic and atraumatic. Pupils are equal, round, and reactive to light. Sclerae are without icterus. Oropharynx clear. NECK: Supple. No lymphadenopathy. LUNGS: Clear to auscultation bilaterally without wheezes, rales, or rhonchi. CARDIAC: Regular rate and rhythm without audible murmurs, rubs, or gallops. ABDOMEN: Soft, nontender, nondistended. Normoactive bowel sounds present. NEUROLOGIC: Alert and oriented x3. SKIN: Without rash or jaundice. LABORATORY DATA: White blood count 3.8, hemoglobin 11.2, hematocrit 33.2, platelets 131. Sodium 135, potassium 4.8, BUN 40, creatinine 10.41, GFR 5, glucose 160. LFTs unremarkable. IMAGING DATA: Chest x-ray, 01/16/2019. Cardiomegaly and pulmonary vascular condition, may reflect sequela of volume overload or CHF. No definite pleural effusion or pneumothorax. CT brain, 01/16/2019. Hypodensities of the right thalamus and left external capsule, likely chronic in nature. Otherwise, no acute hemorrhage or infarct. No midline shift or mass effect. Ventricular size and extra-axial CSF spaces normal. Calvarium is intact. No further imaging deemed necessary at this present time, DISCHARGE MEDICATIONS: The patient advised to resume home medications and strongly advised to adhere to the medications as prescribed in terms of timing as well as times per day. CONDITION: Stable at discharge. DIET: Heart healthy/renal diet. ACTIVITY: As tolerated. FOLLOWUP: 1. The patient will follow up with Dr. Calvillo for continued hemodialysis. 2. The patient also follow up with his primary care physician within 1 to 2 weeks. DISPOSITION: The patient medically cleared for discharge home today. The patient's case was discussed with Dr. Suh, who agrees with the plan of care as described above. DISCHARGE DIAGNOSES: 1. Hypertensive urgency, resolved. 2. Uncontrolled hypertension due to noncompliance. 3. End-stage renal disease, on dialysis. Job ID: [id number]
--- NOTE | 2019-01-21 16:06 | EKG ---
Test Reason : Blood Pressure : / mmHG Vent. Rate : 091 BPM Atrial Rate : 091 BPM P-R Int : 158 ms QRS Dur : 088 ms QT Int : 392 ms P-R-T Axes : 056 060 067 degrees QTc Int : 482 ms Normal sinus rhythm Possible Left atrial enlargement Left ventricular hypertrophy Prolonged QT Abnormal ECG Confirmed by ONESIMO RENDON DO ([id number]), rewrite editor LELAND PACE ([id number]) on 01/21/2019 4:06:30 PM Referred By: JULIETA Confirmed By:ONESIMO RENDON DO
== END 2019-01-17 14:37 | disposition home or self-care (01) ==
LOC: ERS 16:40 → 2SW 21:00
PROVIDERS: ADMIT Internal Medicine; ATTEND Internal Medicine
DX: I16.0 Hypertensive urgency (principal); I12.0 Hypertensive chronic kidney disease with stage 5 chronic kidney disease or end stage renal disease; N18.6 End stage renal disease; R51 Headache; Z79.899 Other long term (current) drug therapy; Z88.1 Allergy status to other antibiotic agents; Z99.2 Dependence on renal dialysis; Z91.14 Patient's other noncompliance with medication regimen
CPT/HCPCS: 36415; 70450; 71045; 80048; 80053; 84484; 85025; 93005; 96365; 96375; G0378; J0360; J1200; J2765; J2930

== ENCOUNTER 2019-04-22 13:53 | Observation (INO) | payer BC ==
[2019-04-22 15:39] LABS: Troponin I 0.125 ng/mL (< 0.028)
[2019-04-22] MEDS ORDERED: Diabetic Tussin 200 MG/10 ML UDCUP PO PRN (16:33)
[2019-04-22] MEDS ORDERED: Acetaminophen 325 MG TAB PO PRN (16:33)
[2019-04-22] MEDS ORDERED: hydrALAZINE 20 MG/ML VIAL SLOW IVP PRN (16:33)
[2019-04-22] MEDS ORDERED: Nitroglycerin 0.4 MG TAB (25 Tab Bottle) PO PRN (16:33)
[2019-04-22] MEDS ORDERED: Bisacodyl 5 MG TAB PO PRN (16:33)
[2019-04-22] MEDS ORDERED: Benzonatate 100 MG CAP PO PRN (16:33)
[2019-04-22] MEDS ORDERED: Senokot S 8.6-50 MG TAB PO PRN (16:33)
[2019-04-22 18:40] VITALS: BMI 22.2
[2019-04-22 18:46] LABS: Troponin I 0.142 ng/mL (< 0.028)
[2019-04-22] MEDS ORDERED: hydrALAZINE 25 MG TAB PO PRN (18:53)
[2019-04-22] MEDS ORDERED: Losartan 25 MG TAB PO SCH (19:30)
[2019-04-22] MEDS: Famotidine 20 MG TAB PO SCH (20:02)
--- NOTE | 2019-04-22 20:15 | HP ---
PRIMARY CARE PHYSICIAN: Vivek. CHIEF COMPLAINT: Chest pain and palpitations. HISTORY OF PRESENTING ILLNESS: Mr. Saxena is a pleasant 48-year-old male with history of hypertension and end-stage renal disease, on hemodialysis Wednesday, Wednesday, and Wednesday, who presented to the emergency room with above-mentioned complaint. History is mainly obtained by the patient himself and electronic and medical records have been reviewed. The patient initially presented to [facility] for complaints of burning chest pain. It started yesterday after dialysis. He is compliant with his dialysis. He has been noticing some palpitations on and off for the last couple of months. He reports that his heart rate goes higher as high as 150s and settles down and comes back to normal. During these fast heart rate episode; he feels somewhat short of breath. He denies any chest pain associated with these palpitation symptoms or any dizziness. Yesterday, however, the episode was more pronounced of the chest pain and elevated pulse with tachycardia and palpitations. It was associated with some dyspnea. Other than that, the patient has been in his usual health. He is compliant with his medications and his dialysis. Normally, his blood pressure is under fairly good control with just clonidine patch and hydralazine p.r.n. and Cozaar daily. He denies any drug, alcohol, or tobacco abuse. He denies any recent history of travel, surgery, mobilization. He denies any history of blood clots in the past. Upon presentation to the emergency room, his blood pressure was 127/82, but his heart rate was 134. He was saturating 98% on room air. He do have a cardiac murmur and his EKG showed sinus tachycardia with prolonged QTc interval. He also was found to have elevated troponin at 0.165. For this, he received 1 dose of therapeutic Lovenox 1 mg/kg as well as aspirin and transdermal nitroglycerin with GI cocktail. He was transferred to our emergency room for further evaluation. In our emergency room, he was hemodynamically stable with heart rate of 110 upon presentation. He did not receive any further workup or treatment, but Medicine Team was called to admit this patient to rule out ACS and for further evaluation. At the time of my evaluation, the patient is sitting comfortably in bed, eating his boxed dinner. PAST MEDICAL HISTORY: 1. Hypertension, well controlled. 2. End-stage renal disease, on Wednesday, Wednesday, Wednesday hemodialysis. 3. Anemia of chronic kidney disease. 4. Secondary hyperparathyroidism of chronic kidney disease. PAST SURGICAL HISTORY: 1. Dialysis access. 2. Renal biopsy. ALLERGIES: INCLUDE VANCOMYCIN. HOME MEDICATIONS: 1. Hydralazine 100 mg p.o. t.i.d. as needed for high blood pressure. 2. Cozaar 50 mg daily. 3. Clonidine patch every 7 days, doses need to be confirmed. SOCIAL HISTORY: He lives at home. No history of drug, tobacco, or alcohol abuse. FAMILY HISTORY: Negative for premature coronary artery disease. REVIEW OF SYSTEMS: A 14-point review of system is done. It is negative except for those mentioned in the history and physical. LABORATORY DATA: Repeat troponin 0.125 and then 0.142. BNP is 370. D-dimer less than 0.27. CBC shows WBCs 4.7, hemoglobin 11.8, and platelet count of 122. Serum chemistries; BUN 28, creatinine 9.42, total bilirubin 1.3 with normal LFTs. Lipase is normal at 70. Chest x-ray by my review shows no evidence of pleural effusion, edema, or infiltrate. EKG by my review shows sinus tachycardia without any acute ST or T-wave changes. PHYSICAL EXAMINATION: VITAL SIGNS: Most recent vital signs; temperature 98.6, pulse of 98, respirations 20, saturating 98% on room air, and blood pressure 177/92. GENERAL: No acute distress. Awake, alert, and oriented x3. HEENT: Mucous membrane is moist and pink. No oropharyngeal exudate or erythema. Head is normocephalic and atraumatic. Pupils are equal and reactive to light and accommodation. Extraocular movement intact. NECK: Supple without any lymphadenopathy, JVD, or bruit. CHEST: Clear to auscultation without any wheezing, rales, or rhonchi. HEART: Sinus tachycardia with regular rhythm and a soft 2/6 systolic murmur is heard. ABDOMEN: Soft, nontender, and nondistended with positive bowel sounds. NEUROLOGICAL: Nonfocal. SKIN: Free of any rashes or bruises. Feels warm and dry to touch. PSYCHIATRIC: Normal affect. IMPRESSION AND PLAN: 1. Chest pain. The patient has not had any cardiac workup done recently. He also has sinus tachycardia, and a new cardiac murmur. We will obtain nuclear medicine stress test and transthoracic echocardiogram and controlled his blood pressure. He reports that normally his blood pressure runs on the lower side and well controlled. He also has elevated troponin, which can be secondary to chronic kidney disease, but they have been normal earlier this year in December. He is currently hemodynamically stable. If his blood pressure allows, we would recommend beta blockers as well. We will give him full-dose aspirin and check lipid profile and start him on statin if indicated. 2. Sinus tachycardia. Pulmonary embolism has been ruled out. The patient has no clinical signs, symptoms to suggest pulmonary embolism and his D-dimer is unremarkable and within normal limits. Etiology is unclear at this time. He reports that every time after dialysis when excessive fluid is removed, he gets palpitations. Clinically, he does not look dehydrated at this time. His heart rate is under better control for now. We will get a transthoracic echocardiogram for further evaluation as he also has a heart murmur. 3. Hypertension. Restart his home medication of clonidine patch, which he will continue as well as Cozaar. We will give 1 dose now. Add p.r.n. antihypertensives and monitor. 4. End-stage renal disease, on hemodialysis. We will consult his residential sales associate, Dr. Calvillo for maintenance hemodialysis. He has Wednesday, Wednesday, and Wednesday schedule. We will avoid any nephrotoxins. 5. Deep venous thrombosis and gastrointestinal prophylaxis. 6. Chronic anemia of chronic kidney disease, stable. DISPOSITION: Mr. Saxena is currently being admitted to the hospital under observation status for chest pain workup and ACS rule out. Further management will depend upon his clinical course. Job ID: [id number]
[2019-04-22] MEDS ORDERED: hydrALAZINE 25 MG TAB PO SCH (21:00)
[2019-04-22] MEDS ORDERED: cloNIDine 0.2 MG TAB PO SCH (21:00)
[2019-04-22] MEDS: cloNIDine 0.1 MG TAB PO PRN (23:39)
[2019-04-23] MEDS ORDERED: cloNIDine 0.3mg/24 Hour PATCH TD SCH (00:30)
[2019-04-23 06:01] LABS: #Basophils 0.1 thou/uL (0.0-0.2); #Eosinphils 0.3 thou/uL (0.0-0.7); #Lymphocytes 1.7 thou/uL (1.20-3.40); #Monocytes 0.3 thou/uL (0.11-0.59); #Neutrophils 1.3 thou/uL (1.40-6.50); %Basophils 1.8 % (0.0-1.0); %Eosinophils 8.3 % (0.0-10.0); %Lymphocytes 46.2 % (21.0-51.0); %Neutrophils 34.7 % (42.0-75.0); Hemoglobin 10.9 g/dL (14.0-18.0); Mean Corpuscular HGB CONC 33.9 g/dL (32.0-36.0); Mean Corpuscular Hemoglobin 35.2 pg (27.0-31.0); Mean Platelet Volume 8.2 fL (7.4-10.4); Platelet Count 119 thou/uL (130-400); RBC Distribution Width 14.1 % (11.5-14.5); White Blood Cell (WBC) Count 3.7 thou/uL (4.8-10.8)
[2019-04-23 06:22] LABS: Anion Gap 20 mmol/L (10-20); BUN (Urea Nitrogen) 48 mg/dL (8.9-20.6); Calc. Creatinine Clearance 7 mL/min (70-130); Calcium 8.5 mg/dL (7.8-10.44); Carbon Dioxide 23 mmol/L (22-29); Cardiac Risk 3.1 (Less than 4.5); Chloride 99 mmol/L (98-107); Cholesterol 126 mg/dl (< 200 Desired); Estimated GFR-MDRD 5; Glucose 82 mg/dL (70-105); HDL Cholesterol 41 mg/dL (>60 Neg Risk); LDL Cholesterol, Calculated 68 mg/dL; Potassium 4.9 mmol/L (3.5-5.1); Sodium 137 mmol/L (136-145); Triglycerides 84 mg/dL (Less than 150)
[2019-04-23] MEDS ORDERED: Losartan 25 MG TAB PO SCH ×2 (09:00)
[2019-04-23] MEDS ORDERED: Aspirin 325 mg Enteric Coated Tablet PO SCH (09:00)
[2019-04-23] MEDS ORDERED: Enoxaparin Sodium 30 MG/0.3 ML SYRINGE SC SCH (09:00)
[2019-04-23] MEDS: Famotidine 20 MG TAB PO SCH (13:04)
[2019-04-23] MEDS ORDERED: ADENOSINE 60 MG/20 ML VIAL ONE (13:12)
[2019-04-23] MEDS: cloNIDine 0.1 MG TAB PO PRN (14:23)
--- NOTE | 2019-04-23 14:26 | NM ---
EXAM: NM Cardiac Stress W EF WF PROVIDED CLINICAL HISTORY: Chest pain COMPARISON: None RADIOPHARMACEUTICAL: 30 millicuries technetium 99m labeled sestamibi IV stress 10.8 millicuries technetium 99m labeled sestamibi IV rest FINDINGS: There is normal, homogeneous distribution of radiotracer throughout the left ventricular myocardium. Gated data demonstrate normal myocardial wall motion and thickening with calculated LVEF 58%. Calculated TID is 1.07. IMPRESSION: 1. No scintigraphic evidence for ischemia. 2. Calculated LVEF 58%.
[2019-04-23 15:38] VITALS: BP 150/78; TEMP 98.4
[2019-04-23 16:22] LABS: Free T4 (Free Thyroxine) 0.88 ng/dL (0.70-1.48)
--- NOTE | 2019-04-23 16:35 | DIS ---
DATE OF ADMISSION: 04/22/2019 DATE OF DISCHARGE: 04/23/2019 PRIMARY DISCHARGE DIAGNOSES: Chest pain with palpitations, resolved. SECONDARY DISCHARGE DIAGNOSES: 1. End-stage renal disease on hemodialysis on Wednesday, Wednesday, Wednesday. 2. Hypertension. 3. Chronic anemia due to renal disease. PROCEDURES DONE DURING HOSPITALIZATION: Nuclear stress test done showed no evidence of reversible ischemia. Ejection fraction was 58%, had normal wall motion. Hemoglobin and hematocrit of 11 and 32, platelet count 119, MCV 104, BUN 48, creatinine 11.5, LDL of 68. DISCHARGE MEDICATIONS: 1. PhosLo 667 mg one capsule twice daily. 2. Clonidine transdermal patch 0.3 mg. 3. Hydralazine 100 mg p.o. three times daily. 4. Losartan 100 mg p.o. daily. ALLERGIES: TO VANCOMYCIN. DISCHARGE PLAN: The patient to follow up with primary care physician in 1 week. BRIEF COURSE DURING HOSPITALIZATION: The patient initially came to ER with complaints of chest pain and palpitations. In view of this history, the patient was placed under observation on telemetry. He has had ACS evidence-based protocol followed. His troponin was indeterminate likely due to his end-stage renal disease. He has had a nuclear stress test done which showed no signs of reversible ischemia. The patient's TSH was within normal limits. Free T3, free T4 is currently pending. If the thyroid function tests are normal, he will be shortly discharged home. He has been advised to follow up with his primary care physician in 1 week. The patient was counseled to check blood pressures and pulse twice daily and record for 10 days to follow up with his primary care physician. Please note, I have seen and examined the patient on the day of discharge. Job ID: [id number]
[2019-04-24] MEDS ORDERED: Famotidine 20 MG TAB PO SCH (09:00)
[2019-04-24] MEDS ORDERED: cloNIDine 0.3mg/24 Hour PATCH TD SCH (09:00)
== END 2019-04-23 17:23 | disposition home or self-care (01) ==
LOC: ERS 13:53 → 2SW 15:48
PROVIDERS: ADMIT Internal Medicine; ATTEND Internal Medicine
DX: R07.9 Chest pain, unspecified (principal); R00.2 Palpitations; R00.0 Tachycardia, unspecified; I12.0 Hypertensive chronic kidney disease with stage 5 chronic kidney disease or end stage renal disease; N18.6 End stage renal disease; D63.1 Anemia in chronic kidney disease; N25.81 Secondary hyperparathyroidism of renal origin; Z99.2 Dependence on renal dialysis; Z88.1 Allergy status to other antibiotic agents; Z79.899 Other long term (current) drug therapy
CPT/HCPCS: 36415; 78452; 80048; 80061; 83880; 84439; 84481; 85025; 85379; 93005; 93017; 93306; 94760; A9500; G0378; J0153